=== PATIENT | female | born 1950 | race Caucasian/White ===

== ENCOUNTER → 2019-09-08 | Outpatient (CLI) | payer OTHER | END | disposition home or self-care (01) | LOC: RAH 12:40 | PROVIDERS: ATTEND Urology | DX: N20.0 Calculus of kidney (principal) | CPT/HCPCS: 74018; 76100 ==

== ENCOUNTER 2019-09-23 05:50 | Day surgery (SDC) | payer OTHER ==
[2019-09-22 10:38] LABS: HEMATOCRIT 41.5 % (36-48); MEAN CORPUSCULAR VOLUME 93.7 fL (79-99); PLATELET COUNT (AUTO) 158 K/uL (130-400); RED BLOOD CELL COUNT(AUTO) 4.43 MIL/uL (4.00-5.50); WHITE BLOOD COUNT (AUTO) 6.4 K/uL (4.8-10.8)
[2019-09-22 10:54] LABS: INR 0.93 (0.85-1.15); PROTHROMBIN TIME 9.8 SEC (9.6-11.6)
[2019-09-22 10:57] VITALS: BP 126/64
[2019-09-22 11:21] LABS: CREATININE 0.8 mg/dL (0.5-1.5); POTASSIUM 4.7 mmol/L (3.5-5.1)
[2019-09-22 11:50] LABS: APPEARANCE,URINE Clear (CLEAR); BILIRUBIN,URINE Negative (NEGATIVE); COLOR,URINE Yellow (YELLOW); GLUCOSE, URINE (UA) Negative (NEGATIVE); KETONES,URINE Negative (NEGATIVE); LEUKOCYTE ESTERASE ,URINE Small (NEGATIVE); NITRATE,URINE Negative (NEGATIVE); OCCULT BLOOD,URINE Small (NEGATIVE); PH,URINE 5.5 (5.0-8.0); PROTEIN,URINE Negative (NEGATIVE); UROBILINOGEN,URINE 0.2 mg/dL (0.2-1.0)
[2019-09-22 12:08] LABS: BACTERIA,URINE Rare /HPF (None Seen); SQUAMOUS EPITHELIAL CELL,UR Rare /HPF (0-2); WBC,URINE 0-1 /HPF (0-1)
[~2019-09-23] VITALS: Ht 160 cm; Wt 97.1 kg
[2019-09-23] VITALS (18 sets, daily range): BP systolic 112–196; BP diastolic 52–96
[2019-09-23] MEDS ORDERED: CEFAZOLIN SODIUM 1 GM VIAL ONE (06:06)
[2019-09-23] MEDS ORDERED: SODIUM CHLORIDE 0.9% 1000ML 1,000 ML IV ONE (06:06)
[2019-09-23] MEDS ORDERED: METF-446 PO (07:04)
[2019-09-23] MEDS ORDERED: ROCURONIUM 10MG/1ML SYR 10 MG/ML ML ONE (07:05)
[2019-09-23] MEDS ORDERED: FENTANYL CITRATE PF 50 MCG/1 ML 2ML VIAL ONE (07:05)
[2019-09-23] MEDS ORDERED: PROPOFOL 10 MG/ML 20ML VIAL IV ONE (07:05)
[2019-09-23] MEDS ORDERED: SIMV80TA91 PO (07:05)
[2019-09-23] MEDS ORDERED: METO25TA6 PO (07:06)
[2019-09-23] MEDS ORDERED: FLUO40CA7 PO (07:08)
[2019-09-23] MEDS ORDERED: TRAM-355 PO (07:11)
[2019-09-23] MEDS ORDERED: EPHEDRINE SULFATE 50 MG/ML AMPULE ONE (07:19)
[2019-09-23] MEDS ORDERED: CEFAZOLIN SODIUM 1 GM VIAL IVP ONE (08:00)
[2019-09-23] MEDS ORDERED: LACTATED RINGERS 1000ML 1,000 ML IV SCH (08:00)
--- NOTE | 2019-09-23 09:25 | NUR ---
ASSESSMENT RECEIVED PT FROM PACU [facility]. PT [id number]. DENIES ANY PAIN. AT BEDSIDE.
--- NOTE | 2019-09-23 10:00 | NUR ---
DISCHARGE ORAL AND WRITTEN DISCHARGE INSTRUCTIONS GIVEN TO PT AND PTS ALONG WITH PRESCRIPTION. GAVE URINE STRAINER TO AND INSTRUCTED ON IMPORTANCE OF STRAINING ALL URINE AND SAVING ANY SPECIMENS FOR DR. SALGADO. BOTH VERBALIZED UNDERSTANDING.
== END 2019-09-23 10:13 | disposition home or self-care (01) ==
LOC: DAH 05:50
PROVIDERS: ATTEND Urology
DX: N20.0 Calculus of kidney (principal); E11.9 Type 2 diabetes mellitus without complications; E66.9 Obesity, unspecified; F17.210 Nicotine dependence, cigarettes, uncomplicated; Z79.899 Other long term (current) drug therapy; Z90.49 Acquired absence of other specified parts of digestive tract; Z68.37 Body mass index [BMI] 37.0-37.9, adult; Z79.84 Long term (current) use of oral hypoglycemic drugs; Z98.890 Other specified postprocedural states
CPT/HCPCS: 36415; 50590; 71046; 74018; 80048; 81001; 82948 ×2; 85027; 85610; 85730; 87077; 87088; 87186; 93005; A4215; A4221; A4222; A4223; A4649; A4663; A6260; J0690; J2704; J3010; J3490; J7030 ×2

== ENCOUNTER → 2019-10-01 | Outpatient (CLI) | payer OTHER ==
[~2019-10-01] MED LIST: FLUO40CA7 PO; METF-446 PO; METO25TA6 PO; SIMV80TA91 PO; TRAM-355 PO
== END | disposition home or self-care (01) ==
LOC: RAH 15:41
PROVIDERS: ATTEND Urology
DX: N20.0 Calculus of kidney (principal)
CPT/HCPCS: 74018; 76100

== ENCOUNTER 2019-10-21 11:28 | Day surgery (SDC) | payer OTHER ==
[2019-10-20 13:55] VITALS: BP 143/62
[2019-10-20 14:20] LABS: HEMATOCRIT 41.8 % (36-48); MEAN CORPUSCULAR HEMOGLOBIN 30.1 pg (27.0-33.0); MEAN CORPUSCULAR HGB CONC 32.8 g/dL (32.0-36.0); MEAN CORPUSCULAR VOLUME 91.9 fL (79-99); PLATELET COUNT (AUTO) 164 K/uL (130-400); RED BLOOD CELL COUNT(AUTO) 4.55 MIL/uL (4.00-5.50)
[2019-10-20 14:25] LABS: APPEARANCE,URINE Clear (CLEAR); BILIRUBIN,URINE Negative (NEGATIVE); COLOR,URINE Yellow (YELLOW); GLUCOSE, URINE (UA) Negative (NEGATIVE); KETONES,URINE Negative (NEGATIVE); LEUKOCYTE ESTERASE ,URINE Moderate (NEGATIVE); NITRATE,URINE Negative (NEGATIVE); OCCULT BLOOD,URINE Moderate (NEGATIVE); PH,URINE 5.5 (5.0-8.0); PROTEIN,URINE Trace mg/dL (NEGATIVE); UROBILINOGEN,URINE 0.2 mg/dL (0.2-1.0)
[2019-10-20 14:35] LABS: INR 0.95 (0.85-1.15); PARTIAL THROMBOPLASTIN TIME 25.8 SEC (26.3-35.5)
--- NOTE | 2019-10-20 14:35 | NUR ---
RE: ABNORMAL EKG INFORMED DR JONES REGARDING ABNORMAL EKG AND PATIENT'S MEDICAL HISTORY. PER DR JONES, NO NEW ORDERS AND OK TO PROCEED WITH SCHEDULED PROCEDURE.
[2019-10-20 14:36] LABS: CREATININE 0.9 mg/dL (0.5-1.5); POTASSIUM 4.4 mmol/L (3.5-5.1)
[2019-10-20 14:37] LABS: BACTERIA,URINE Rare /HPF (None Seen); SQUAMOUS EPITHELIAL CELL,UR Few /HPF (0-2)
--- NOTE | 2019-10-20 17:08 | NUR ---
LABS ABNORMAL UA REPORTED TO DR. SALGADO, MESSAGE LEFT WITH PETTY ALSO INFORMED THEM THAT H&P NEEDS TO BE SEND .
[2019-10-21] VITALS (15 sets, daily range): BP systolic 119–144; BP diastolic 51–79
[~2019-10-21] VITALS: Ht 161.3 cm; Wt 96.4 kg
[2019-10-21] MEDS ORDERED: SODIUM CHLORIDE 0.9% 1000ML 1,000 ML IV ONE (13:29)
[2019-10-21] MEDS: CEFAZOLIN SODIUM 1 GM VIAL ONE ×2 (13:44→14:45)
[2019-10-21] MEDS ORDERED: PROPOFOL 10 MG/ML 20ML VIAL IV ONE (14:30)
[2019-10-21] MEDS ORDERED: FENTANYL CITRATE PF 50 MCG/1 ML 2ML VIAL ONE (14:30)
[2019-10-21] MEDS ORDERED: LIDOCAINE PF 2% 5ML ABBOJECT ONE (14:30)
[2019-10-23] MEDS ORDERED: CEFAZOLIN SODIUM 1 GM VIAL IVP SCH (06:00)
[2019-10-23] MEDS ORDERED: LACTATED RINGERS 1000ML 1,000 ML IV SCH (06:00)
== END 2019-10-21 17:40 | disposition home or self-care (01) ==
LOC: DAH 11:28
PROVIDERS: ATTEND Urology
DX: N20.0 Calculus of kidney (principal); I10 Essential (primary) hypertension; F17.210 Nicotine dependence, cigarettes, uncomplicated; Z79.899 Other long term (current) drug therapy
CPT/HCPCS: 36415; 50590; 71046; 74018; 74176; 80048; 81001; 82948 ×2; 85027; 85610; 85730; 87088; 93005; A4213; A4215; A4221; A4222; A4223; A4600; A4663; A6260; J0690; J2001; J2704; J3010; J7030

== ENCOUNTER → 2019-11-07 | Outpatient (CLI) | payer OTHER | END | disposition home or self-care (01) | LOC: RAH 09:25 | PROVIDERS: ATTEND Urology | DX: N20.0 Calculus of kidney (principal) | CPT/HCPCS: 74018; 76100 ==